=== PATIENT | male | born 1970 | race Caucasian/White ===

== ENCOUNTER 2016-03-28 10:54 | Emergency (ER) | payer MEDICAID ==
[~2016-03-28 10:54] MED LIST: /ESOM40CA OR; /GLYB5TA OR; /QUET10TA OR; ACTO45TA OR; ALLO300T OR; ASPI81TA45 OR; Byetta SC; DIOV320T OR; GEMF600T OR; GLUC1000 OR; GLUC500T OR; ZOLO100T OR; ZOLO50TA OR
[2016-03-28] MEDS ORDERED: PERCOCET 5MG/325MG TAB As Ordered ONE (11:26)
[2016-03-28] MEDS ORDERED: fentaNYL 100 MCG/2 ML INJECTION (J3010) As Ordered ONE ×2 (12:30→12:31)
[2016-03-28] MEDS ORDERED: PROPOFOL 200 MG/20 ML VIAL As Ordered ONE (12:30)
--- NOTE | 2016-03-28 13:44 | EDDOCDS ---
Nurse's Notes [facility] Name: Dane Burr Age: 45 yrs Sex: Male : 1970 Arrival Date: 03/28/2016 Time: 10:54 Bed 4 Private MD: Diagnosis: Other dislocation of right shoulder joint Presentation: 03/28 11:01 Presenting complaint: Patient states: can't move right shoulder after falling down [facility] steps last night. Adult Sepsis Screening: The patient does not have new or worsening altered mentation. Patient's respiratory rate is less than 22. Systolic blood pressure is greater than 100. Patient has a qSOFA score of 0- Negative Sepsis Screen. Suicide/Homicide risk assessment- the patient denies having any suicidal and/or homicidal ideations and does not present with any other emotional, behavioral or mental health complaints. Status: Patient is not a social services coordinator or dependent. Transition of care: patient was not received from another setting of care. 11:01 Acuity: ALYSSA Level 3 [facility] 11:01 Method Of Arrival: Walkin/Carried/Asstd [facility] Triage Assessment: 11:06 General: Appears in no apparent distress, uncomfortable, Behavior is appropriate for [facility] age, cooperative. Pain: Location: right arm Pain currently is 10 out of 10 on a pain scale. HIV screening NA for this visit Offered previously. Musculoskeletal: Range of motion limited in right shoulder. Historical: - Allergies: no known allergies; - Home Meds: 1. losartan 100 mg oral tab 1 tab once daily (Last dose: 03/27/2016) 2. pravastatin 40 mg oral tab 1 tab once daily (Last dose: 03/27/2016) 3. Tradjenta 5 mg oral tab 1 tab once daily (Last dose: 03/27/2016) 4. metformin 1,000 mg Oral tab 1 tab 2 times per day (Last dose: 03/27/2016) 5. omeprazole 40 mg Oral cpDR 1 cap once daily (Last dose: 03/27/2016) 6. Lantus 52 units nightly Sub-Q (Last dose: 03/27/2016) - PMHx: Diabetes - IDDM: controlled; GERD; Hypertension; Hypercholesterolemia; - PSHx: none; - Social history: Smoking status: Patient uses tobacco products, current some day smoker. No barriers to communication noted. - Family history: Not pertinent. - : The pt / caregiver states he / she is not on anticoagulants. Home medication list is obtained from the patient. - Exposure Risk Screening:: None identified. Screenin:07 Screening information is obtained from the patient. Fall risk: No risks identified. [facility] Assistance ADL's: requires no assistance with activities of daily living. Abuse/DV Screen: The patient / caregiver reports he/she is: not in a situation that causes fear, pain or injury. Nutritional screening: No deficits noted. Advance Directives: Currently, there is no health care proxy. There is no active DNR order. There is no living will. There is no Power of Vocational Instructor. home support is adequate. Assessment: 11:24 General: Appears uncomfortable, Behavior is cooperative. Pain: Location: upper right jf3 arm Pain currently is 10 out of 10 on a pain scale. Neurological: Level of Consciousness is awake, alert, Oriented to person, place, time. Cardiovascular: Capillary refill < 3 seconds. Respiratory: Airway is patent Respiratory effort is even, unlabored, Respiratory pattern is regular, symmetrical. Musculoskeletal: Circulation, motion, and sensation intact Capillary refill < 3 seconds Range of motion intact in right hand Bony deformity noted of right upper arm. 12:08 General: Appears in no apparent distress, Behavior is appropriate for age, cooperative. js13 Pain: Location: right shoulder. Neurological: Level of Consciousness is awake, alert. Respiratory: Airway is patent Respiratory effort is even, unlabored, Respiratory pattern is regular, symmetrical. Derm: No deficits noted. 12:57 Adult Sepsis Screening: The patient does not have new or worsening altered mentation. js13 Patient's respiratory rate is less than 22. Systolic blood pressure is greater than 100. Patient has a qSOFA score of 0- Negative Sepsis Screen. General: Appears in no apparent distress, Behavior is appropriate for age, cooperative. Pain: Pain currently is 1 out of 10 on a pain scale. Neurological: Level of Consciousness is awake, alert. Respiratory: Airway is patent Respiratory effort is even, unlabored, Respiratory pattern is regular, symmetrical. Derm: Skin is pink, warm & dry. 13:30 General: Appears in no apparent distress, Behavior is appropriate for age, cooperative. js13 Pain: Pain currently is 2 out of 10 on a pain scale. Neurological: Level of Consciousness is awake, alert. Cardiovascular: Rhythm is sinus rhythm Chest pain is denied. Respiratory: Airway is patent Respiratory effort is even, unlabored, Respiratory pattern is regular, symmetrical. Derm: Skin is pink, warm & dry. Vital Signs: 10:59 BP 162 / 84 RA Sitting (auto/reg); Pulse 105 RA; Resp 18 S; Temp 99.5(O); Pulse Ox 98% mt4 on R/A; Weight 113.4 kg (R); Height 5 ft. 8 in. (172.72 cm) (R); Pain 10/10; 12:39 BP 122 / 58; Pulse 89; Resp 20; Pulse Ox 98% on 2 lpm NC; Pain 4/10; jc4 12:40 BP 136 / 63 (auto/); js13 12:40 Pulse 92 MON; Resp 16; Pulse Ox 98% on 2 lpm NC; js13 12:47 BP 157 / 87 (auto/); js13 12:47 Pulse 84 MON; Resp 16; Pulse Ox 97% on 2 lpm NC; js13 12:50 BP 162 / 92 (auto/); js13 12:50 Pulse 82 MON; Resp 16; Pulse Ox 97% on 5 lpm NC; js13 12:55 BP 153 / 83 (auto/); js13 12:55 Pulse 74 MON; Resp 16; Pulse Ox 99% on 5 lpm NC; js13 13:00 BP 146 / 88 (auto/); js13 13:00 Pulse 72 MON; Resp 16; Pulse Ox 98% on R/A; js13 13:05 BP 142 / 85 (auto/); js13 13:05 Pulse 76 MON; Resp 16; Pulse Ox 98% on R/A; js13 13:10 BP 143 / 87 (auto/); js13 13:10 Pulse 74 MON; Resp 16; Pulse Ox 98% on R/A; js13 13:15 BP 148 / 92 (auto/); js13 13:15 Pulse 76 MON; Resp 16; Pulse Ox 98% on R/A; js13 13:20 BP 142 / 83 (auto/); js13 13:20 Pulse 80 MON; Resp 16; Pulse Ox 99% on R/A; js13 13:25 BP 134 / 75 (auto/); js13 13:25 Pulse 76 MON; Resp 16; Temp 98.5(O); Pulse Ox 95% on R/A; js13 13:33 Pain 2/10; js13 10:59 Body Mass Index 38.01 (113.40 kg, 172.72 cm) mt4 Vitals: 12:40 ETCO2 36mmHg. js13 12:47 ETCO2 35mmHg. js13 12:50 ETCO2 36mmHg. js13 12:55 ETCO2 34mmHg. js13 ED Course: 10:57 Patient visited by Carina Chen. mt4 10:57 Patient moved to Waiting mt4 11:00 Patient moved to Pre RCE mt4 11:02 Triage Initiated cjh 11:07 Patient moved to Triage 2 cj 11:09 Ray Stark PA-C is PHCP. ar2 11:09 Cornelius Holloway MD is Attending Physician. ar2 11:14 Patient visited by Ray Stark PA-C. ar2 11:17 Patient moved to Pre RCE mt4 11:19 Patient moved to I6 / jf3 11:26 Patient visited by Vik Skinner RN. 3 11:34 [facility] Payment Agreement was scanned into [employer] and attached to record. lg 11:34 Patient moved to Radiology dsf 11:39 Patient moved to I6 / 28 srm 11:46 Laura Monae,RN is Primary Nurse. srm 11:46 Patient moved to 4 srm 11:50 The patient / caregiver is instructed regarding the plan of care and ED course. Report srm given to Yamileth Monae rn. 12:09 Patient visited by Laura Monae RN. js13 12:30 Patient visited by Cornelius Holloway MD. br1 12:35 Inserted saline lock: 18 gauge in left antecubital area The patient tolerated the js13 procedure well. No procedures done that require assistance. O2 via nasal cannula \\T\\ 2L/min. 13:02 Patient visited by Laura Monae RN. js13 13:03 Patient visited by Laura Monae RN. js13 13:03 Shoulder immobilizer applied on right shoulder. Patient with positive distal sensation js13 and brisk distal capillary refill after application. 13:19 [facility] is Referral Physician. br1 13:25 Discontinued IV lock intact, bleeding controlled, pressure dressing applied, No js13 redness/swelling at site. M. Sedation: 12:39 Pre-procedure: Name of procedure: Right Shoulder Reduction Monitoring RN: Laura Monae RN Other Staff: Augustina Allan RN & Johan Goins, RT Reviewed instructions and expectations with patient, Reviewed patient's current meds list. ekg monitor on. Cardiac rhythm Sinus rhythm Pulse ox on. Oxygen via nasal cannula \\T\\ 2L/min 12:39 Pre-procedure: Has had drug/anesthesia reactions to None 12:39 Q 5 minute assessment Level of Consciousness: Alert / Oriented 12:39 Intra-procedure: Procedure began at 12:42 12:39 Pre-procedure: The provider performing the procedure is Cornelius lambert 12:39 See Trend VS 12:39 Post-procedure: Procedure ended at 12:46 the total procedure time was less than 30 minutes. 12:44 Intra-procedure: Pt drowsy, SaO2 89%, oxygen increased to 5 liters nasal canula jc4 12:45 Intra-procedure: Respiratory rate 12/minute. Pt does not verbally respond. jc4 Ventilations assisted by BVM 12:46 Intra-procedure: Pt with eyes open. Responds to verbal stimulation. States feeling jc4 "good" at this time. Follows verbal commands Administered Medications: 11:27 Drug: oxyCODONE-acetaminophen 1 tabs [oxycodone-acetaminophen 5 mg-325 mg tablet (1 dsf tabs)] Route: PO; 12:39 Drug: NS 0.9% 1000 ml [sodium chloride 0.9 % intravenous solution] Route: IV; Rate: 150 jc4 mL/hr; Site: left antecubital; 13:33 Follow up: IV Status: Infusion discontinued; IV Intake: 200ml js13 12:40 Drug: fentaNYL (PF) 100 mcg [fentanyl (PF) 50 mcg/mL injection solution (2 mL)] {Note: jc4 Administered by Dr. Holloway.} Route: IVP; Site: left antecubital; 13:33 Follow up: Pain 2/10 Adult; Response: Confirmed pt not driving.; Pain is decreased js13 12:42 Drug: Propofol (PF) 100 mg [propofol (PF) 1,000 mg/100 mL (10 mg/mL) intravenous jc4 emulsion (10 mL)] {Note: Administered by DR. Holloway.} Route: IVP; Site: left antecubital; 13:33 Follow up: Response: No Adverse Reaction js13 Intake: 13:33 IV: 200.00ml; Total: 200.00ml. js13 RT: 13:23 Sedation Time: 30Minutes. de1 Order Results: There are currently no results for this order. Outcome: 13:20 Discharge ordered by Provider. br1 13:25 Discharge Assessment: Patient awake, alert and oriented x 3. No cognitive and/or js13 functional deficits noted. Patient verbalized understanding of disposition instructions. patient administered narcotics - yes. Pt provided with safe discharge. The following High Risk Discharge criteria are identified: None. Discharged to home ambulatory, with family. Condition: stable. No special radiology studies were completed. Property :Personal belongings accompany Pt. 13:43 Discharge instructions given to patient, Instructed on discharge instructions, follow js13 up and referral plans. medication usage, Demonstrated understanding of instructions, medications, Pt was receptive of discharge instructions/ teaching. Prescriptions given X 1, Work note provided to patient. 13:43 Patient left the ED. 13 Signatures: Nadira Sanon, RN RN [facility] Taylor Linares, Reg Reg Cornelius Holloway MD MD br1 Elmer, David de1 Robertshaw, Aaron, PA-C PACarina Garay la4 Laura Allan, RN RN jc4 Naz Allred,RN Laura Todd,JESUS LEE js13 Neha Mcclure,RN JESUS willson Vik Skinner,RN RN jf3 Corrections: (The following items were deleted from the chart) 13:01 12:55 Pulse 74bpm; Monitor; Pulse Ox 99%; 13:01 12:40 Pulse 92bpm; MonitorResp 16bpm; Pulse Ox 98% RA; 13:01 12:47 Pulse 84bpm; MonitorResp 16bpm; Pulse Ox 97% RA; 13:01 12:50 Pulse 82bpm; Monitor; Pulse Ox 97%; MTDD
--- NOTE | 2016-03-28 13:44 | EDDOCDS ---
Physician Documentation [facility] Name: Dane Burr Age: 45 yrs Sex: Male : 1970 Arrival Date: 03/28/2016 Time: 10:54 Bed 4 Private MD: Disposition: 03/28/16 13:20 Discharged to Home/Self Care. Impression: Other dislocation of right shoulder joint. - Condition is Stable. - Discharge Instructions: Shoulder Dislocation, Conscious Sedation, Adult. - Prescriptions for Percocet 5- 325 mg Oral Tablet - take 1 tablet by ORAL route every 6 hours As needed MDD: 4 tabs; 10 tablet. - Medication Reconciliation, Work Release Form - 3 day, Local Pharmacy Hours form. - Follow up: [facility]; When: 4 - 5 days; Reason: Recheck today's complaints. - Problem is new. - Symptoms have improved. - Notes: You were seen in the ED for a right shoulder injury and were found to have a dislocated shoulder. You underwent sedation and reduction of the shoulder. Xray after the reduction showed normal alignment of the shoulder. Wear the shoulder immobilizer, rest, ice and take Ibuprofen as needed for pain. You may take Percocet as needed for breakthrough pain - no driving or operating machinery while on this medicine. You will need to see Orthopedics for further evaluation - please call the number below to arrange to be seen. Return to the ED for any new or worse pain or any other concerns. Historical: - Allergies: no known allergies; - Home Meds: 1. losartan 100 mg oral tab 1 tab once daily (Last dose: 03/27/2016) 2. pravastatin 40 mg oral tab 1 tab once daily (Last dose: 03/27/2016) 3. Tradjenta 5 mg oral tab 1 tab once daily (Last dose: 03/27/2016) 4. metformin 1,000 mg Oral tab 1 tab 2 times per day (Last dose: 03/27/2016) 5. omeprazole 40 mg Oral cpDR 1 cap once daily (Last dose: 03/27/2016) 6. Lantus 52 units nightly Sub-Q (Last dose: 03/27/2016) - PMHx: Diabetes - IDDM: controlled; GERD; Hypertension; Hypercholesterolemia; - PSHx: none; - Social history: Smoking status: Patient uses tobacco products, current some day smoker. No barriers to communication noted. - Family history: Not pertinent. - : The pt / caregiver states he / she is not on anticoagulants. Home medication list is obtained from the patient. - Exposure Risk Screening:: None identified. Vital Signs: 03/28 10:59 BP 162 / 84 RA Sitting (auto/reg); Pulse 105 RA; Resp 18 S; Temp 99.5(O); Pulse Ox 98% mt4 on R/A; Weight 113.4 kg / 250 lbs (R); Height 5 ft. 8 in. (172.72 cm) (R); Pain 10/10; 12:39 BP 122 / 58; Pulse 89; Resp 20; Pulse Ox 98% on 2 lpm NC; Pain 4/10; jc4 12:40 BP 136 / 63 (auto/); js13 12:40 Pulse 92 MON; Resp 16; Pulse Ox 98% on 2 lpm NC; js13 12:47 BP 157 / 87 (auto/); js13 12:47 Pulse 84 MON; Resp 16; Pulse Ox 97% on 2 lpm NC; js13 12:50 BP 162 / 92 (auto/); js13 12:50 Pulse 82 MON; Resp 16; Pulse Ox 97% on 5 lpm NC; js13 12:55 BP 153 / 83 (auto/); js13 12:55 Pulse 74 MON; Resp 16; Pulse Ox 99% on 5 lpm NC; js13 13:00 BP 146 / 88 (auto/); js13 13:00 Pulse 72 MON; Resp 16; Pulse Ox 98% on R/A; js13 13:05 BP 142 / 85 (auto/); js13 13:05 Pulse 76 MON; Resp 16; Pulse Ox 98% on R/A; js13 13:10 BP 143 / 87 (auto/); js13 13:10 Pulse 74 MON; Resp 16; Pulse Ox 98% on R/A; js13 13:15 BP 148 / 92 (auto/); js13 13:15 Pulse 76 MON; Resp 16; Pulse Ox 98% on R/A; js13 13:20 BP 142 / 83 (auto/); js13 13:20 Pulse 80 MON; Resp 16; Pulse Ox 99% on R/A; js13 13:25 BP 134 / 75 (auto/); js13 13:25 Pulse 76 MON; Resp 16; Temp 98.5(O); Pulse Ox 95% on R/A; js13 13:33 Pain 2/10; js13 10:59 Body Mass Index 38.01 (113.40 kg, 172.72 cm) mt4 Procedures: 13:20 Moderate sedation: Pre-procedure assessment: the patient has been NPO 4 hour(s) prior br1 to arrival, ASA physical classification: II - mild/mod systemic disease that does not interfere with daily routines, Airway assessment: able to hyperextend neck, able to maintain airway, can open mouth without difficulty, Mallampati classification of tongue size: III - uvula can be visualized, but faucial pillars and soft palate are not appreciated, Monitoring during procedure: nurse at bedside at all times, monitor tech, continuous pulse oximetry, End Tidal CO2 Medications employed: Fentanyl, 0.100 mg(s), Propofol _ mg? 100 mgs. Post-procedure assessment: the patient is moderately sedated, Mock sedation score: 3 - patient responds to commands only, Respiratory status: requires supplemental oxygen to maintain acceptable oxygen saturation, a reversal agent was not used, Complications: none. Total time spent by provider performing sedation 35 minutes. 13:23 Joint Reduction: of the right shoulder, using manipulation, Adduction, external br1 rotation, Immobilized with shoulder immoblizer. Patient tolerated well. Post reduction film - reveals normal alignment. MDM: 11:20 Sling ordered. ar2 11:20 oxyCODONE-acetaminophen 5 mg-325 mg 1 tabs PO once ordered. ar2 11:20 Humerus Ordered. EDMS 11:28 Financial registration complete. lg 11:34 [facility] Payment Agreement was scanned into [employer] and attached to record. lg 11:46 NOTHING BY MOUTH+DIET ordered. EDMS 12:35 IV Saline Lock ordered. br1 12:36 Call Respiratory ordered. br1 12:36 Airway Cart to bedside ordered. br1 12:36 Continuous Character Impersonator and SaO2 with q 5 minute VS during procedure ordered. br1 12:36 Initiate continuous wave form capnography monitoring ordered. br1 12:36 Oxygen at 4L/Min NC or Home dosage ordered. br1 12:36 NS 0.9% 1000 ml IV at 150 mL/hr continuous ordered. br1 12:38 Call Respiratory complete. jc4 12:50 Shoulder (1 View) Ordered. EDMS Administered Medications: 11:27 Drug: oxyCODONE-acetaminophen 1 tabs [oxycodone-acetaminophen 5 mg-325 mg tablet (1 dsf tabs)] Route: PO; 12:39 Drug: NS 0.9% 1000 ml [sodium chloride 0.9 % intravenous solution] Route: IV; Rate: 150 jc4 mL/hr; Site: left antecubital; 13:33 Follow up: IV Status: Infusion discontinued; IV Intake: 200ml js13 12:40 Drug: fentaNYL (PF) 100 mcg [fentanyl (PF) 50 mcg/mL injection solution (2 mL)] {Note: jc4 Administered by Dr. Holloway.} Route: IVP; Site: left antecubital; 13:33 Follow up: Pain 2/10 Adult; Response: Confirmed pt not driving.; Pain is decreased js13 12:42 Drug: Propofol (PF) 100 mg [propofol (PF) 1,000 mg/100 mL (10 mg/mL) intravenous jc4 emulsion (10 mL)] {Note: Administered by DR. Holloway.} Route: IVP; Site: left antecubital; 13:33 Follow up: Response: No Adverse Reaction js13 Signatures: Dispatcher [employer] EDMS Taylor Linares, Bao Gore lg Cornelius Holloway MD MD br1 Ray Stark PA-C PA-C ar2 Laura Allan RN RN jc4 Laura Monae RN RN js13 Neha Mcclure RN RN cj Naz Allred RN dsf The chart was reviewed and I authenticate all verbal orders and agree with the evaluation and treatment provided.Attachments: 11:34 [facility] Payment Agreement lg MTDD
--- NOTE | 2016-03-28 13:50 | REP ---
Right humerus: Three views. History: Trauma. Findings: Three views of the right humerus demonstrate anterior inferior glenohumeral dislocation on the right. No visible fracture. There is a bifid right anterolateral rib noted incidentally. Impression: Anterior inferior glenohumeral dislocation. No humeral fracture seen. Signed by Elgin Akins MD 03/28/2016 02:38 P
--- NOTE | 2016-03-28 13:59 | REP ---
Portable single view right shoulder: History: Post reduction. Findings: Single portable AP view of the right shoulder demonstrate normal alignment of the glenohumeral articulation. No fracture is evident on this single view. Impression: The glenohumeral joint is reduced. No fracture is visible. Signed by Elgin Akins MD 03/28/2016 02:39 P
--- NOTE | 2016-03-30 14:45 | EDDOCDS ---
Nurse's Notes [facility] Name: Dane Burr Age: 45 yrs Sex: Male : 1970 Arrival Date: 03/28/2016 Time: 10:54 Bed 4 Private MD: Diagnosis: Other dislocation of right shoulder joint Presentation: 03/28 11:01 Presenting complaint: Patient states: can't move right shoulder after falling down [facility] steps last night. Adult Sepsis Screening: The patient does not have new or worsening altered mentation. Patient's respiratory rate is less than 22. Systolic blood pressure is greater than 100. Patient has a qSOFA score of 0- Negative Sepsis Screen. Suicide/Homicide risk assessment- the patient denies having any suicidal and/or homicidal ideations and does not present with any other emotional, behavioral or mental health complaints. Status: Patient is not a mobile service rv technician or dependent. Transition of care: patient was not received from another setting of care. 11:01 Acuity: ALYSSA Level 3 [facility] 11:01 Method Of Arrival: Walkin/Carried/Asstd [facility] Triage Assessment: 11:06 General: Appears in no apparent distress, uncomfortable, Behavior is appropriate for [facility] age, cooperative. Pain: Location: right arm Pain currently is 10 out of 10 on a pain scale. HIV screening NA for this visit Offered previously. Musculoskeletal: Range of motion limited in right shoulder. Historical: - Allergies: no known allergies; - Home Meds: 1. losartan 100 mg oral tab 1 tab once daily (Last dose: 03/27/2016) 2. pravastatin 40 mg oral tab 1 tab once daily (Last dose: 03/27/2016) 3. Tradjenta 5 mg oral tab 1 tab once daily (Last dose: 03/27/2016) 4. metformin 1,000 mg Oral tab 1 tab 2 times per day (Last dose: 03/27/2016) 5. omeprazole 40 mg Oral cpDR 1 cap once daily (Last dose: 03/27/2016) 6. Lantus 52 units nightly Sub-Q (Last dose: 03/27/2016) - PMHx: Diabetes - IDDM: controlled; GERD; Hypertension; Hypercholesterolemia; - PSHx: none; - Social history: Smoking status: Patient uses tobacco products, current some day smoker. No barriers to communication noted. - Family history: Not pertinent. - : The pt / caregiver states he / she is not on anticoagulants. Home medication list is obtained from the patient. - Exposure Risk Screening:: None identified. Screenin:07 Screening information is obtained from the patient. Fall risk: No risks identified. [facility] Assistance ADL's: requires no assistance with activities of daily living. Abuse/DV Screen: The patient / caregiver reports he/she is: not in a situation that causes fear, pain or injury. Nutritional screening: No deficits noted. Advance Directives: Currently, there is no health care proxy. There is no active DNR order. There is no living will. There is no Power of Diversity Manager. home support is adequate. Assessment: 11:24 General: Appears uncomfortable, Behavior is cooperative. Pain: Location: upper right jf3 arm Pain currently is 10 out of 10 on a pain scale. Neurological: Level of Consciousness is awake, alert, Oriented to person, place, time. Cardiovascular: Capillary refill < 3 seconds. Respiratory: Airway is patent Respiratory effort is even, unlabored, Respiratory pattern is regular, symmetrical. Musculoskeletal: Circulation, motion, and sensation intact Capillary refill < 3 seconds Range of motion intact in right hand Bony deformity noted of right upper arm. 12:08 General: Appears in no apparent distress, Behavior is appropriate for age, cooperative. js13 Pain: Location: right shoulder. Neurological: Level of Consciousness is awake, alert. Respiratory: Airway is patent Respiratory effort is even, unlabored, Respiratory pattern is regular, symmetrical. Derm: No deficits noted. 12:57 Adult Sepsis Screening: The patient does not have new or worsening altered mentation. js13 Patient's respiratory rate is less than 22. Systolic blood pressure is greater than 100. Patient has a qSOFA score of 0- Negative Sepsis Screen. General: Appears in no apparent distress, Behavior is appropriate for age, cooperative. Pain: Pain currently is 1 out of 10 on a pain scale. Neurological: Level of Consciousness is awake, alert. Respiratory: Airway is patent Respiratory effort is even, unlabored, Respiratory pattern is regular, symmetrical. Derm: Skin is pink, warm & dry. 13:30 General: Appears in no apparent distress, Behavior is appropriate for age, cooperative. js13 Pain: Pain currently is 2 out of 10 on a pain scale. Neurological: Level of Consciousness is awake, alert. Cardiovascular: Rhythm is sinus rhythm Chest pain is denied. Respiratory: Airway is patent Respiratory effort is even, unlabored, Respiratory pattern is regular, symmetrical. Derm: Skin is pink, warm & dry. Vital Signs: 10:59 BP 162 / 84 RA Sitting (auto/reg); Pulse 105 RA; Resp 18 S; Temp 99.5(O); Pulse Ox 98% mt4 on R/A; Weight 113.4 kg (R); Height 5 ft. 8 in. (172.72 cm) (R); Pain 10/10; 12:39 BP 122 / 58; Pulse 89; Resp 20; Pulse Ox 98% on 2 lpm NC; Pain 4/10; jc4 12:40 BP 136 / 63 (auto/); js13 12:40 Pulse 92 MON; Resp 16; Pulse Ox 98% on 2 lpm NC; js13 12:47 BP 157 / 87 (auto/); js13 12:47 Pulse 84 MON; Resp 16; Pulse Ox 97% on 2 lpm NC; js13 12:50 BP 162 / 92 (auto/); js13 12:50 Pulse 82 MON; Resp 16; Pulse Ox 97% on 5 lpm NC; js13 12:55 BP 153 / 83 (auto/); js13 12:55 Pulse 74 MON; Resp 16; Pulse Ox 99% on 5 lpm NC; js13 13:00 BP 146 / 88 (auto/); js13 13:00 Pulse 72 MON; Resp 16; Pulse Ox 98% on R/A; js13 13:05 BP 142 / 85 (auto/); js13 13:05 Pulse 76 MON; Resp 16; Pulse Ox 98% on R/A; js13 13:10 BP 143 / 87 (auto/); js13 13:10 Pulse 74 MON; Resp 16; Pulse Ox 98% on R/A; js13 13:15 BP 148 / 92 (auto/); js13 13:15 Pulse 76 MON; Resp 16; Pulse Ox 98% on R/A; js13 13:20 BP 142 / 83 (auto/); js13 13:20 Pulse 80 MON; Resp 16; Pulse Ox 99% on R/A; js13 13:25 BP 134 / 75 (auto/); js13 13:25 Pulse 76 MON; Resp 16; Temp 98.5(O); Pulse Ox 95% on R/A; js13 13:33 Pain 2/10; js13 10:59 Body Mass Index 38.01 (113.40 kg, 172.72 cm) mt4 Vitals: 12:40 ETCO2 36mmHg. js13 12:47 ETCO2 35mmHg. js13 12:50 ETCO2 36mmHg. js13 12:55 ETCO2 34mmHg. js13 ED Course: 10:57 Patient visited by Carina Chen. mt4 10:57 Patient moved to Waiting mt4 11:00 Patient moved to Pre RCE mt4 11:02 Triage Initiated cjh 11:07 Patient moved to Triage 2 cj 11:09 Ray Stark PA-C is PHCP. ar2 11:09 Cornelius Holloway MD is Attending Physician. ar2 11:14 Patient visited by Ray Stark PA-C. ar2 11:17 Patient moved to Pre RCE mt4 11:19 Patient moved to I6 / jf3 11:26 Patient visited by Vik Skinner RN. 3 11:34 [facility] Payment Agreement was scanned into [employer] and attached to record. lg 11:34 Patient moved to Radiology dsf 11:39 Patient moved to I6 / 28 srm 11:46 Laura Monae,RN is Primary Nurse. srm 11:46 Patient moved to 4 srm 11:50 The patient / caregiver is instructed regarding the plan of care and ED course. Report srm given to Yamileth Monae rn. 12:09 Patient visited by Laura Monae RN. js13 12:30 Patient visited by Cornelius Holloway MD. br1 12:35 Inserted saline lock: 18 gauge in left antecubital area The patient tolerated the js13 procedure well. No procedures done that require assistance. O2 via nasal cannula \\T\\ 2L/min. 13:02 Patient visited by Laura Monae RN. js13 13:03 Patient visited by Laura Monae RN. js13 13:03 Shoulder immobilizer applied on right shoulder. Patient with positive distal sensation js13 and brisk distal capillary refill after application. 13:19 [facility] is Referral Physician. br1 13:25 Discontinued IV lock intact, bleeding controlled, pressure dressing applied, No js13 redness/swelling at site. 14:34 Humerus Returned. EDMS 14:34 Shoulder (1 View) Returned. EDMS 14:47 T-Sheet-- Draft Copy was scanned into [employer] and attached to record. gb 14:47 Consents was scanned into [employer] and attached to record. gb 14:47 [place] Protocol was scanned into [employer] and attached to record. gb 14:47 Radiology Report was scanned into [employer] and attached to record. estrellita M. Sedation: 12:39 Pre-procedure: Name of procedure: Right Shoulder Reduction Monitoring RN: Laura Monae RN Other Staff: Augustina Allan RN & Johan Goins, RT Reviewed instructions and expectations with patient, Reviewed patient's current meds list. monitoring analyst on. Cardiac rhythm Sinus rhythm Pulse ox on. Oxygen via nasal cannula \\T\\ 2L/min 12:39 Pre-procedure: Has had drug/anesthesia reactions to None 12:39 Q 5 minute assessment Level of Consciousness: Alert / Oriented 12:39 Intra-procedure: Procedure began at 12:42 12:39 Pre-procedure: The provider performing the procedure is Cornelius Holloway MD 4 12:39 See Trend VS 12:39 Post-procedure: Procedure ended at 12:46 the total procedure time was less than 30 minutes. 12:44 Intra-procedure: Pt drowsy, SaO2 89%, oxygen increased to 5 liters nasal canula jc4 12:45 Intra-procedure: Respiratory rate 12/minute. Pt does not verbally respond. jc4 Ventilations assisted by BVM 12:46 Intra-procedure: Pt with eyes open. Responds to verbal stimulation. States feeling jc4 "good" at this time. Follows verbal commands Administered Medications: 11:27 Drug: oxyCODONE-acetaminophen 1 tabs [oxycodone-acetaminophen 5 mg-325 mg tablet (1 dsf tabs)] Route: PO; 12:39 Drug: NS 0.9% 1000 ml [sodium chloride 0.9 % intravenous solution] Route: IV; Rate: 150 jc4 mL/hr; Site: left antecubital; 13:33 Follow up: IV Status: Infusion discontinued; IV Intake: 200ml js13 12:40 Drug: fentaNYL (PF) 100 mcg [fentanyl (PF) 50 mcg/mL injection solution (2 mL)] {Note: jc4 Administered by Dr. Holloway.} Route: IVP; Site: left antecubital; 13:33 Follow up: Pain 2/10 Adult; Response: Confirmed pt not driving.; Pain is decreased js13 12:42 Drug: Propofol (PF) 100 mg [propofol (PF) 1,000 mg/100 mL (10 mg/mL) intravenous jc4 emulsion (10 mL)] {Note: Administered by DR. Holloway.} Route: IVP; Site: left antecubital; 13:33 Follow up: Response: No Adverse Reaction js13 Attachments: 14:47 Consents gb 14:47 [place] Protocol gb Intake: 13:33 IV: 200.00ml; Total: 200.00ml. js13 RT: 13:23 Sedation Time: 30Minutes. de1 Order Results: Radiology Order: Humerus Test: Humerus REASON FOR EXAMINATION: Trauma; Right humerus: Three views.; ; History: Trauma.; ; Findings: Three views of the right humerus demonstrate anterior inferior; glenohumeral dislocation on the right. No visible fracture. There is a bifid; right anterolateral rib noted incidentally.; ; Impression:; ; Anterior inferior glenohumeral dislocation. No humeral fracture seen.; ; ; Signed by; Elgin Akins MD 03/28/2016 02:38 P; Radiology Order: Shoulder (1 View) Test: Shoulder (1 View) REASON FOR EXAMINATION: eval for reduction; Portable single view right shoulder:; ; History: Post reduction.; ; Findings: Single portable AP view of the right shoulder demonstrate normal; alignment of the glenohumeral articulation. No fracture is evident on this; single view.; ; Impression:; ; The glenohumeral joint is reduced. No fracture is visible.; ; ; Signed by; Elgin Akins MD 03/28/2016 02:39 P; Outcome: 13:20 Discharge ordered by Provider. br1 13:25 Discharge Assessment: Patient awake, alert and oriented x 3. No cognitive and/or js13 functional deficits noted. Patient verbalized understanding of disposition instructions. patient administered narcotics - yes. Pt provided with safe discharge. The following High Risk Discharge criteria are identified: None. Discharged to home ambulatory, with family. Condition: stable. No special radiology studies were completed. Property :Personal belongings accompany Pt. 13:43 Discharge instructions given to patient, Instructed on discharge instructions, follow js13 up and referral plans. medication usage, Demonstrated understanding of instructions, medications, Pt was receptive of discharge instructions/ teaching. Prescriptions given X 1, Work note provided to patient. 13:43 Patient left the ED. js13 Signatures: Dispatcher [employer] EDMS Nadira Sanon, RN RN [facility] Abdirahman Leda, Reg Reg gb MilagrosTaylor, Reg Reg lg Cornelius Holloway MD MD br1 Josh Goins Aaron, PA-C PAIlda peterson2 Carina Chen mt4 Laura Allan, RN RN jc4 Naz AllredRN RN Laura JacksonRN RN js13 Neha McclureRN RN [facility] Vik Skinner,RN RN jf3 Corrections: (The following items were deleted from the chart) 13:01 12:55 Pulse 74bpm; Monitor; Pulse Ox 99%; 13 13:01 12:40 Pulse 92bpm; MonitorResp 16bpm; Pulse Ox 98% RA; [facility] 13:01 12:47 Pulse 84bpm; MonitorResp 16bpm; Pulse Ox 97% RA; 13 13:01 12:50 Pulse 82bpm; Monitor; Pulse Ox 97%; [facility] 13 Chart Complete MTDD
--- NOTE | 2016-03-30 14:45 | EDDOCDS ---
Physician Documentation [facility] Name: Dane Burr Age: 45 yrs Sex: Male : 1970 Arrival Date: 03/28/2016 Time: 10:54 Bed 4 Private MD: Disposition: 03/28/16 13:20 Discharged to Home/Self Care. Impression: Other dislocation of right shoulder joint. - Condition is Stable. - Discharge Instructions: Shoulder Dislocation, Conscious Sedation, Adult. - Prescriptions for Percocet 5- 325 mg Oral Tablet - take 1 tablet by ORAL route every 6 hours As needed MDD: 4 tabs; 10 tablet. - Medication Reconciliation, Work Release Form - 3 day, Local Pharmacy Hours form. - Follow up: [facility]; When: 4 - 5 days; Reason: Recheck today's complaints. - Problem is new. - Symptoms have improved. - Notes: You were seen in the ED for a right shoulder injury and were found to have a dislocated shoulder. You underwent sedation and reduction of the shoulder. Xray after the reduction showed normal alignment of the shoulder. Wear the shoulder immobilizer, rest, ice and take Ibuprofen as needed for pain. You may take Percocet as needed for breakthrough pain - no driving or operating machinery while on this medicine. You will need to see Orthopedics for further evaluation - please call the number below to arrange to be seen. Return to the ED for any new or worse pain or any other concerns. Historical: - Allergies: no known allergies; - Home Meds: 1. losartan 100 mg oral tab 1 tab once daily (Last dose: 03/27/2016) 2. pravastatin 40 mg oral tab 1 tab once daily (Last dose: 03/27/2016) 3. Tradjenta 5 mg oral tab 1 tab once daily (Last dose: 03/27/2016) 4. metformin 1,000 mg Oral tab 1 tab 2 times per day (Last dose: 03/27/2016) 5. omeprazole 40 mg Oral cpDR 1 cap once daily (Last dose: 03/27/2016) 6. Lantus 52 units nightly Sub-Q (Last dose: 03/27/2016) - PMHx: Diabetes - IDDM: controlled; GERD; Hypertension; Hypercholesterolemia; - PSHx: none; - Social history: Smoking status: Patient uses tobacco products, current some day smoker. No barriers to communication noted. - Family history: Not pertinent. - : The pt / caregiver states he / she is not on anticoagulants. Home medication list is obtained from the patient. - Exposure Risk Screening:: None identified. Vital Signs: 03/28 10:59 BP 162 / 84 RA Sitting (auto/reg); Pulse 105 RA; Resp 18 S; Temp 99.5(O); Pulse Ox 98% mt4 on R/A; Weight 113.4 kg / 250 lbs (R); Height 5 ft. 8 in. (172.72 cm) (R); Pain 10/10; 12:39 BP 122 / 58; Pulse 89; Resp 20; Pulse Ox 98% on 2 lpm NC; Pain 4/10; jc4 12:40 BP 136 / 63 (auto/); js13 12:40 Pulse 92 MON; Resp 16; Pulse Ox 98% on 2 lpm NC; js13 12:47 BP 157 / 87 (auto/); js13 12:47 Pulse 84 MON; Resp 16; Pulse Ox 97% on 2 lpm NC; js13 12:50 BP 162 / 92 (auto/); js13 12:50 Pulse 82 MON; Resp 16; Pulse Ox 97% on 5 lpm NC; js13 12:55 BP 153 / 83 (auto/); js13 12:55 Pulse 74 MON; Resp 16; Pulse Ox 99% on 5 lpm NC; js13 13:00 BP 146 / 88 (auto/); js13 13:00 Pulse 72 MON; Resp 16; Pulse Ox 98% on R/A; js13 13:05 BP 142 / 85 (auto/); js13 13:05 Pulse 76 MON; Resp 16; Pulse Ox 98% on R/A; js13 13:10 BP 143 / 87 (auto/); js13 13:10 Pulse 74 MON; Resp 16; Pulse Ox 98% on R/A; js13 13:15 BP 148 / 92 (auto/); js13 13:15 Pulse 76 MON; Resp 16; Pulse Ox 98% on R/A; js13 13:20 BP 142 / 83 (auto/); js13 13:20 Pulse 80 MON; Resp 16; Pulse Ox 99% on R/A; js13 13:25 BP 134 / 75 (auto/); js13 13:25 Pulse 76 MON; Resp 16; Temp 98.5(O); Pulse Ox 95% on R/A; js13 13:33 Pain 2/10; js13 10:59 Body Mass Index 38.01 (113.40 kg, 172.72 cm) mt4 Procedures: 13:20 Moderate sedation: Pre-procedure assessment: the patient has been NPO 4 hour(s) prior br1 to arrival, ASA physical classification: II - mild/mod systemic disease that does not interfere with daily routines, Airway assessment: able to hyperextend neck, able to maintain airway, can open mouth without difficulty, Mallampati classification of tongue size: III - uvula can be visualized, but faucial pillars and soft palate are not appreciated, Monitoring during procedure: nurse at bedside at all times, cardiac monitor technician, continuous pulse oximetry, End Tidal CO2 Medications employed: Fentanyl, 0.100 mg(s), Propofol _ mg? 100 mgs. Post-procedure assessment: the patient is moderately sedated, Mock sedation score: 3 - patient responds to commands only, Respiratory status: requires supplemental oxygen to maintain acceptable oxygen saturation, a reversal agent was not used, Complications: none. Total time spent by provider performing sedation 35 minutes. 13:23 Joint Reduction: of the right shoulder, using manipulation, Adduction, external br1 rotation, Immobilized with shoulder immoblizer. Patient tolerated well. Post reduction film - reveals normal alignment. MDM: 11:20 Sling ordered. ar2 11:20 oxyCODONE-acetaminophen 5 mg-325 mg 1 tabs PO once ordered. ar2 11:20 Humerus Ordered. EDMS 11:28 Financial registration complete. lg 11:34 [facility] Payment Agreement was scanned into [employer] and attached to record. lg 11:46 NOTHING BY MOUTH+DIET ordered. EDMS 12:35 IV Saline Lock ordered. br1 12:36 Call Respiratory ordered. br1 12:36 Airway Cart to bedside ordered. br1 12:36 Continuous Plastic Duplicator and SaO2 with q 5 minute VS during procedure ordered. br1 12:36 Initiate continuous wave form capnography monitoring ordered. br1 12:36 Oxygen at 4L/Min NC or Home dosage ordered. br1 12:36 NS 0.9% 1000 ml IV at 150 mL/hr continuous ordered. br1 12:38 Call Respiratory complete. jc4 12:50 Shoulder (1 View) Ordered. EDMS 14:47 T-Sheet-- Draft Copy was scanned into [employer] and attached to record. gb 14:47 Consents was scanned into [employer] and attached to record. gb 14:47 [place] Protocol was scanned into [employer] and attached to record. gb 14:47 Radiology Report was scanned into [employer] and attached to record. gb Administered Medications: 11:27 Drug: oxyCODONE-acetaminophen 1 tabs [oxycodone-acetaminophen 5 mg-325 mg tablet (1 dsf tabs)] Route: PO; 12:39 Drug: NS 0.9% 1000 ml [sodium chloride 0.9 % intravenous solution] Route: IV; Rate: 150 jc4 mL/hr; Site: left antecubital; 13:33 Follow up: IV Status: Infusion discontinued; IV Intake: 200ml js13 12:40 Drug: fentaNYL (PF) 100 mcg [fentanyl (PF) 50 mcg/mL injection solution (2 mL)] {Note: jc4 Administered by Dr. Holloway.} Route: IVP; Site: left antecubital; 13:33 Follow up: Pain 2/10 Adult; Response: Confirmed pt not driving.; Pain is decreased js13 12:42 Drug: Propofol (PF) 100 mg [propofol (PF) 1,000 mg/100 mL (10 mg/mL) intravenous jc4 emulsion (10 mL)] {Note: Administered by DR. Holloway.} Route: IVP; Site: left antecubital; 13:33 Follow up: Response: No Adverse Reaction js13 Signatures: Dispatcher [employer] EDGA Leda Gary, Reg Reg gb Taylor Linares, Reg Reg lg Cornelius Holloway MD MD br1 Ray Stark PA-C PA-C ar2 Laura Allan RN RN jc4 Laura Monae RN RN js13 Neha Mcclure RN RN cjh Fuller, Desiree RN dsf The chart was reviewed and I authenticate all verbal orders and agree with the evaluation and treatment provided.Attachments: 11:34 [facility] Payment Agreement lg 14:47 T-Sheet-- Draft Copy gb Chart Complete MTDD
--- NOTE | 2016-03-30 14:45 | EDDOCDS ---
Physician Documentation [facility] Name: Dane Burr Age: 45 yrs Sex: Male : 1970 Arrival Date: 03/28/2016 Time: 10:54 Bed 4 Private MD: Disposition: 03/28/16 13:20 Discharged to Home/Self Care. Impression: Other dislocation of right shoulder joint. - Condition is Stable. - Discharge Instructions: Shoulder Dislocation, Conscious Sedation, Adult. - Prescriptions for Percocet 5- 325 mg Oral Tablet - take 1 tablet by ORAL route every 6 hours As needed MDD: 4 tabs; 10 tablet. - Medication Reconciliation, Work Release Form - 3 day, Local Pharmacy Hours form. - Follow up: [facility]; When: 4 - 5 days; Reason: Recheck today's complaints. - Problem is new. - Symptoms have improved. - Notes: You were seen in the ED for a right shoulder injury and were found to have a dislocated shoulder. You underwent sedation and reduction of the shoulder. Xray after the reduction showed normal alignment of the shoulder. Wear the shoulder immobilizer, rest, ice and take Ibuprofen as needed for pain. You may take Percocet as needed for breakthrough pain - no driving or operating machinery while on this medicine. You will need to see Orthopedics for further evaluation - please call the number below to arrange to be seen. Return to the ED for any new or worse pain or any other concerns. Historical: - Allergies: no known allergies; - Home Meds: 1. losartan 100 mg oral tab 1 tab once daily (Last dose: 03/27/2016) 2. pravastatin 40 mg oral tab 1 tab once daily (Last dose: 03/27/2016) 3. Tradjenta 5 mg oral tab 1 tab once daily (Last dose: 03/27/2016) 4. metformin 1,000 mg Oral tab 1 tab 2 times per day (Last dose: 03/27/2016) 5. omeprazole 40 mg Oral cpDR 1 cap once daily (Last dose: 03/27/2016) 6. Lantus 52 units nightly Sub-Q (Last dose: 03/27/2016) - PMHx: Diabetes - IDDM: controlled; GERD; Hypertension; Hypercholesterolemia; - PSHx: none; - Social history: Smoking status: Patient uses tobacco products, current some day smoker. No barriers to communication noted. - Family history: Not pertinent. - : The pt / caregiver states he / she is not on anticoagulants. Home medication list is obtained from the patient. - Exposure Risk Screening:: None identified. Vital Signs: 03/28 10:59 BP 162 / 84 RA Sitting (auto/reg); Pulse 105 RA; Resp 18 S; Temp 99.5(O); Pulse Ox 98% mt4 on R/A; Weight 113.4 kg / 250 lbs (R); Height 5 ft. 8 in. (172.72 cm) (R); Pain 10/10; 12:39 BP 122 / 58; Pulse 89; Resp 20; Pulse Ox 98% on 2 lpm NC; Pain 4/10; jc4 12:40 BP 136 / 63 (auto/); js13 12:40 Pulse 92 MON; Resp 16; Pulse Ox 98% on 2 lpm NC; js13 12:47 BP 157 / 87 (auto/); js13 12:47 Pulse 84 MON; Resp 16; Pulse Ox 97% on 2 lpm NC; js13 12:50 BP 162 / 92 (auto/); js13 12:50 Pulse 82 MON; Resp 16; Pulse Ox 97% on 5 lpm NC; js13 12:55 BP 153 / 83 (auto/); js13 12:55 Pulse 74 MON; Resp 16; Pulse Ox 99% on 5 lpm NC; js13 13:00 BP 146 / 88 (auto/); js13 13:00 Pulse 72 MON; Resp 16; Pulse Ox 98% on R/A; js13 13:05 BP 142 / 85 (auto/); js13 13:05 Pulse 76 MON; Resp 16; Pulse Ox 98% on R/A; js13 13:10 BP 143 / 87 (auto/); js13 13:10 Pulse 74 MON; Resp 16; Pulse Ox 98% on R/A; js13 13:15 BP 148 / 92 (auto/); js13 13:15 Pulse 76 MON; Resp 16; Pulse Ox 98% on R/A; js13 13:20 BP 142 / 83 (auto/); js13 13:20 Pulse 80 MON; Resp 16; Pulse Ox 99% on R/A; js13 13:25 BP 134 / 75 (auto/); js13 13:25 Pulse 76 MON; Resp 16; Temp 98.5(O); Pulse Ox 95% on R/A; js13 13:33 Pain 2/10; js13 10:59 Body Mass Index 38.01 (113.40 kg, 172.72 cm) mt4 Procedures: 13:20 Moderate sedation: Pre-procedure assessment: the patient has been NPO 4 hour(s) prior br1 to arrival, ASA physical classification: II - mild/mod systemic disease that does not interfere with daily routines, Airway assessment: able to hyperextend neck, able to maintain airway, can open mouth without difficulty, Mallampati classification of tongue size: III - uvula can be visualized, but faucial pillars and soft palate are not appreciated, Monitoring during procedure: nurse at bedside at all times, color television console monitor, continuous pulse oximetry, End Tidal CO2 Medications employed: Fentanyl, 0.100 mg(s), Propofol _ mg? 100 mgs. Post-procedure assessment: the patient is moderately sedated, Mock sedation score: 3 - patient responds to commands only, Respiratory status: requires supplemental oxygen to maintain acceptable oxygen saturation, a reversal agent was not used, Complications: none. Total time spent by provider performing sedation 35 minutes. 13:23 Joint Reduction: of the right shoulder, using manipulation, Adduction, external br1 rotation, Immobilized with shoulder immoblizer. Patient tolerated well. Post reduction film - reveals normal alignment. MDM: 11:20 Sling ordered. ar2 11:20 oxyCODONE-acetaminophen 5 mg-325 mg 1 tabs PO once ordered. ar2 11:20 Humerus Ordered. EDMS 11:28 Financial registration complete. lg 11:34 [facility] was scanned into [employer] and attached to record. lg 11:46 NOTHING BY MOUTH+DIET ordered. EDMS 12:35 IV Saline Lock ordered. br1 12:36 Call Respiratory ordered. br1 12:36 Airway Cart to bedside ordered. br1 12:36 Continuous Home Service Director and SaO2 with q 5 minute VS during procedure ordered. br1 12:36 Initiate continuous wave form capnography monitoring ordered. br1 12:36 Oxygen at 4L/Min NC or Home dosage ordered. br1 12:36 NS 0.9% 1000 ml IV at 150 mL/hr continuous ordered. br1 12:38 Call Respiratory complete. jc4 12:50 Shoulder (1 View) Ordered. EDMS 14:47 T-Sheet-- Draft Copy was scanned into [employer] and attached to record. gb 14:47 Consents was scanned into [employer] and attached to record. gb 14:47 [place] Protocol was scanned into [employer] and attached to record. gb 14:47 Radiology Report was scanned into [employer] and attached to record. gb Administered Medications: 11:27 Drug: oxyCODONE-acetaminophen 1 tabs [oxycodone-acetaminophen 5 mg-325 mg tablet (1 dsf tabs)] Route: PO; 12:39 Drug: NS 0.9% 1000 ml [sodium chloride 0.9 % intravenous solution] Route: IV; Rate: 150 jc4 mL/hr; Site: left antecubital; 13:33 Follow up: IV Status: Infusion discontinued; IV Intake: 200ml js13 12:40 Drug: fentaNYL (PF) 100 mcg [fentanyl (PF) 50 mcg/mL injection solution (2 mL)] {Note: jc4 Administered by Dr. Holloway.} Route: IVP; Site: left antecubital; 13:33 Follow up: Pain 2/10 Adult; Response: Confirmed pt not driving.; Pain is decreased js13 12:42 Drug: Propofol (PF) 100 mg [propofol (PF) 1,000 mg/100 mL (10 mg/mL) intravenous jc4 emulsion (10 mL)] {Note: Administered by DR. Holloway.} Route: IVP; Site: left antecubital; 13:33 Follow up: Response: No Adverse Reaction js13 Signatures: Dispatcher [employer] EDAL Leda Gary, Reg Reg gb Taylor Linares, Reg Reg lg Cornelius Holloway MD MD br1 Ray Stark PA-C PA-C ar2 Laura Allan RN RN jc4 Laura Monae RN RN js13 Neha Mcclure RN RN cjh Fuller, Desiree RN dsf The chart was reviewed and I authenticate all verbal orders and agree with the evaluation and treatment provided.Attachments: 11:34 [facility] [place] Agreement lg 14:47 T-Sheet-- Draft Copy gb Chart Complete MTDD
== END 2016-03-28 13:43 | disposition home or self-care (01) ==
LOC: M ED 10:54
DX: S43.001A Unspecified subluxation of right shoulder joint, initial encounter (principal); W10.9XXA Fall (on) (from) unspecified stairs and steps, initial encounter; Y92.018 Other place in single-family (private) house as the place of occurrence of the external cause; Y93.89 Activity, other specified; Y99.8 Other external cause status; E11.9 Type 2 diabetes mellitus without complications; I10 Essential (primary) hypertension; E78.00 Pure hypercholesterolemia, unspecified; K21.9 Gastro-esophageal reflux disease without esophagitis; Z79.899 Other long term (current) drug therapy; Z79.84 Long term (current) use of oral hypoglycemic drugs; F17.210 Nicotine dependence, cigarettes, uncomplicated
CPT/HCPCS: 23650; 73020; 73060; 93041; 96361; 96374; 96375; 99285; J3010

== ENCOUNTER → 2016-07-06 | Outpatient (REF) | payer OTHER, MEDICAID ==
[2016-07-06 20:01] LABS: ALBUMIN 3.7 GM/DL (3.2-5.2); ALBUMIN/GLOBULIN RATIO 1.06 (1.00-1.93); ALKALINE PHOSPHATASE 117 U/L (45-117); ALT/SGPT 26 U/L (12-78); ANION GAP 10 MEQ/L (8-16); AST/SGOT 14 U/L (15-37); BILIRUBIN,TOTAL 0.4 MG/DL (0.2-1.0); BLOOD UREA NITROGEN 15 MG/DL (7-18); CALCIUM LEVEL 8.7 MG/DL (8.5-10.1); CARBON DIOXIDE LEVEL 25 MEQ/L (21-32); CHLORIDE LEVEL 103 MEQ/L (98-107); CHOLESTEROL LEVEL 153 MG/DL (<200); CREATININE FOR GFR 1.01 MG/DL (0.70-1.30); GLOMERULAR FILTRATION RATE > 60.0 (>60); GLUCOSE, FASTING 279 MG/DL (70-105); MAGNESIUM LEVEL 1.4 MG/DL (1.8-2.4); POTASSIUM SERUM 4.2 MEQ/L (3.5-5.1); SODIUM LEVEL 138 MEQ/L (136-145); TOTAL PROTEIN 7.2 GM/DL (6.4-8.2); TRIGLYCERIDES LEVEL 352 MG/DL (<150)
== END ==
LOC: M LAB REF 16:40
PROVIDERS: ATTEND Nurse Practitioner Family
DX: E11.9 Type 2 diabetes mellitus without complications (principal); K21.9 Gastro-esophageal reflux disease without esophagitis; E78.5 Hyperlipidemia, unspecified; I10 Essential (primary) hypertension

== ENCOUNTER → 2016-07-09 | Outpatient (CLI) | payer OTHER, MEDICAID ==
[2016-07-09 19:34] LABS: MEAN CORPUSCULAR HEMOGLOBIN 30.2 pg (27.0-33.0); MEAN CORPUSCULAR HGB CONC 33.4 g/dl (32.0-36.5); MEAN CORPUSCULAR VOLUME 90.3 fl (80.0-96.0); RED CELL DISTRIBUTION WIDTH 12.5 % (11.5-14.5); WHITE BLOOD COUNT 10.8 K/mm3 (4.0-10.0)
== END ==
LOC: M SMT 11:38
PROVIDERS: ATTEND Nurse Practitioner Family
DX: I10 Essential (primary) hypertension (principal); E11.9 Type 2 diabetes mellitus without complications

== ENCOUNTER → 2016-07-28 | Outpatient (REF) | payer OTHER, MEDICAID | LOC: M LAB REF 17:16 | PROVIDERS: ATTEND Nurse Practitioner Family | DX: E83.42 Hypomagnesemia (principal) ==

== ENCOUNTER → 2016-08-20 | Outpatient (CLI) | payer OTHER ==
[~2016-08-20] MED LIST changes: +ALOG25TA PO; +ATOR40TA PO; +ECOT81TA5 PO; +INSUHUMDS SC; +INSULADS INJ; +INSULANT SC; +LOSA100T36 PO; +MAGN1TAB25 PO; +METF1000 PO; +OMEP40CA2 PO; +PRAV40TA2 PO; +TOUJ1.2I SC; +TRAD5TAB PO; +VITA500055 PO
--- NOTE | 2016-08-20 17:12 | ECGEPIP ---
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
--- NOTE | 2016-08-21 01:30 | REP ---
Clinical: Preoperative assessment . Comparison: 05/02/2007 . Technique: PA and lateral. Findings: The mediastinum and cardiac silhouette are normal. The lung melo are clear and without acute consolidation, effusion, or pneumothorax. The skeletal structures are intact and normal. Impression: 1. No acute cardiopulmonary process. Signed by Akin Ibanez MD 08/21/2016 01:22 A
== END ==
LOC: M EKG 12:38
PROVIDERS: ATTEND Nurse Practitioner Family
DX: Z01.818 Encounter for other preprocedural examination (principal); I10 Essential (primary) hypertension

== ENCOUNTER → 2016-08-20 | Outpatient (REF) | payer OTHER ==
[2016-08-20 18:56] LABS: ANION GAP 9 MEQ/L (8-16); BLOOD UREA NITROGEN 19 MG/DL (7-18); CALCIUM LEVEL 9.9 MG/DL (8.5-10.1); CARBON DIOXIDE LEVEL 25 MEQ/L (21-32); CHLORIDE LEVEL 101 MEQ/L (98-107); CREATININE FOR GFR 0.97 MG/DL (0.70-1.30); GLOMERULAR FILTRATION RATE > 60.0 (>60); GLUCOSE, FASTING 248 MG/DL (70-105); MAGNESIUM LEVEL 1.6 MG/DL (1.8-2.4); SODIUM LEVEL 135 MEQ/L (136-145)
== END ==
LOC: M LAB REF 16:50
PROVIDERS: ATTEND Nurse Practitioner Family
DX: E55.9 Vitamin D deficiency, unspecified (principal)

== ENCOUNTER 2016-08-28 10:36 | Day surgery (SDC) | payer OTHER ==
[~2016-08-28] VITALS: Ht 172.7 cm; Wt 126.6 kg
[~2016-08-28 10:36] MED LIST changes: +LIDOCAINE 2% INJ 100 MG/5 ML SDV (FOR ANES.) As Ordered ONE; +MIDAZOLAM INJ 2 MG/2 ML VIAL (J2250) As Ordered ONE; +ONDANSETRON 4MG/2ML VIAL (J2405) As Ordered ONE; +PROPOFOL 200 MG/20 ML VIAL As Ordered ONE; +ROCURONIUM BROMIDE 50 MG/5 ML VIAL As Ordered ONE; +dexameTHASONE 4 MG/ML 1ML VIAL (J1100) As Ordered ONE; +fentaNYL 100 MCG/2 ML INJECTION (J3010) As Ordered ONE
[2016-08-28] MEDS ORDERED: dexameTHASONE 10 MG/1 ML VIAL PRES.FREE (J1100) ONE (10:37)
[2016-08-28] MEDS ORDERED: ROPIvacaine 0.5% 30 ML INJECTION (J2795) ONE (10:37)
[2016-08-28] MEDS ORDERED: LIDOCAINE 1% MDV 20ML VIAL ONE (10:37)
[2016-08-28] MEDS ORDERED: MEPIVACAINE HCL 1.5% 30 ML VIAL (J0670) ONE (10:37)
[2016-08-28] MEDS ORDERED: LR 1,000 ML IV ONE (10:45)
[2016-08-28] MEDS ORDERED: fentaNYL 100 MCG/2 ML INJECTION (J3010) As Ordered ONE (11:52)
[2016-08-28] MEDS ORDERED: MIDAZOLAM INJ 2 MG/2 ML VIAL (J2250) As Ordered ONE (11:52)
[2016-08-28] MEDS ORDERED: EPINEPHrine 1MG/ML INJ 30ML MD-VIAL As Ordered ONE (12:00)
[2016-08-28] MEDS ORDERED: HumaLOG INSULIN (NovoLOG) PER UNIT SC ONE ×2 (12:00→17:30)
[2016-08-28] MEDS: MIDAZOLAM INJ 2 MG/2 ML VIAL (J2250) IV PRN ×2 (12:25→12:27)
[2016-08-28] MEDS: fentaNYL 100 MCG/2 ML INJECTION (J3010) IV PRN ×2 (12:25→12:28)
[2016-08-28] MEDS ORDERED: HYDROmorphone HCL 2 MG/ML 1ML VIAL (J1170) As Ordered ONE (13:30)
[2016-08-28] MEDS ORDERED: HYDROmorphone HCL 1 MG/ML SYRINGE (J1170) As Ordered ONE (16:57)
[2016-08-28] MEDS ORDERED: PERCOCET 5MG/325MG TAB As Ordered ONE (16:57)
[2016-08-28] MEDS ORDERED: PERCOCET 5MG/325MG TAB PO PRN (17:15)
[2016-08-28] MEDS ORDERED: NORCO, ANEXSIA 5/325MG TABLET (HYDROcodone/ACETAMINOPHEN) PO PRN (17:15)
[2016-08-28] MEDS ORDERED: ONDANSETRON 4MG/2ML VIAL (J2405) IV PRN (17:15)
[2016-08-28] MEDS ORDERED: MORPHINE 4 MG/ML 1ML SYRINGE IV PRN (17:15)
[2016-08-28] MEDS ORDERED: LR 1,000 ML IV SCH ×2 (17:15)
[2016-08-28] MEDS ORDERED: HYDROmorphone HCL 1 MG/ML SYRINGE (J1170) IV PRN (17:15)
[2016-08-28] MEDS ORDERED: fentaNYL 100 MCG/2 ML INJECTION (J3010) IV PRN (17:15)
[2016-08-28 18:45] VITALS: BP 139/75
[2016-08-28 19:15] VITALS: BP 177/83
[2016-08-28 20:15] VITALS: BP 148/76
[2016-08-28] MEDS: NORCO, ANEXSIA 5/325MG TABLET (HYDROcodone/ACETAMINOPHEN) PO PRN (20:42)
[2016-08-28] MEDS ORDERED: ENTER DRUG NAME HERE (PATIENT'S OWN MED) SC SCH (21:00)
[2016-08-28 21:15] VITALS: BP 150/70
[2016-08-28 22:00] VITALS: BP 176/84
[2016-08-28] MEDS: metFORMIN (GLUCOPHAGE) 1000 MG TABLET PO SCH (22:22)
[2016-08-29 02:00] VITALS: BP 136/68
[2016-08-29 06:00] VITALS: BP 140/66
[2016-08-29] MEDS: NORCO, ANEXSIA 5/325MG TABLET (HYDROcodone/ACETAMINOPHEN) PO PRN ×2 (06:29→10:41)
[2016-08-29] MEDS ORDERED: metFORMIN (GLUCOPHAGE) 1000 MG TABLET PO SCH (08:00)
[2016-08-29] MEDS ORDERED: ENTER DRUG NAME HERE (PATIENT'S OWN MED) SC SCH (09:00)
--- NOTE | 2016-08-29 10:18 | RO ---
DATE OF PROCEDURE: 08/28/2016 PREPROCEDURE DIAGNOSES: 1. Right shoulder supraspinatus rotator cuff tear. 2. Right shoulder subscapularis cuff tear 3. Right shoulder biceps medial dislocation. POSTPROCEDURE DIAGNOSES: 1. Right shoulder supraspinatus rotator cuff tear. 2. Right shoulder subscapularis cuff tear 3. Right shoulder biceps medial dislocation. PROCEDURE: 1. Right shoulder arthroscopic subscapularis repair using two SwiveLocks. 2. Right shoulder arthroscopic biceps tenotomy. 3. Right shoulder arthroscopic supraspinatus rotator cuff tendon tear using a double row SpeedBridge hybrid technique. SURGEON: Johan Marlow MD STATEMENT REQUEST CLERK: Dane Merchant PA-C ANESTHESIA: Right interscalene nerve block with general endotracheal anesthetic. COMPLICATIONS: None. ESTIMATED BLOOD LOSS: 50 mL. FINDINGS: He had a complete disruption of both the subscapularis and the supraspinatus tendon with medial dislocation of the biceps. DESCRIPTION OF PROCEDURE: Antibiotics were given intravenously preoperatively and a successful right interscalene nerve block anesthetic was established. Then, he was taken to the operating room, where a general endotracheal anesthetic was established and then placed in a semi beach chair position with a spider shoulder almaguer was also utilized. The right shoulder area was then carefully prepped and draped in the usual sterile fashion. Then, after an appropriate time-out, a routine diagnostic arthroscopy was performed with the right shoulder through a posterior portal. Upon entering the joint, you could see that the biceps was easily subluxing into a dislocated position by just palpating it through the anterior portal using my Veress needle. This was consistent with his subscapularis tear, and you can also see that the subscapularis was pulled away from almost its entire footprint and retracted medially. The comma tissue was readily identifiable attached to the overlying supraspinatus tendon tear above, and there was a complete disruption of the supraspinatus tendon, as well. There was some glenohumeral arthritis and some spurring around the humeral head, but it was mild in degree. No other pathology identified. Thus, I released the biceps tendon from its insertion in the glenoid superior tubercle and then placed the scope in the subacromial space and performed a bursectomy. I established a lateral working cannula and then an anterior working cannula; and then, I was able to dissect around the subscapularis tendon, both on its anterior surface down between the coracoid and the strap muscles in the anterior surface of the subscapularis tendon, as well as medially around the glenoid neck, such that I could get adequate mobilization eventually of the subscapularis tendon. I also worked the supraspinatus tendon, both on the articular and bursal side, to help mobilize that tendon, as well, such that when I pulled on it with the rotator cuff grasped, it appeared mobile enough that we could get good repair. The footprint of the supraspinatus and the subscapularis tendon was then debrided down to good bony bed using the ring curette and the bur and the shaver. Once I was satisfied that we had adequate visualization of the cuff, I could understand the anatomy. I began first by repairing the subscapularis tendon. I used the SwiveLock technique using FiberTapes as a SpeedFix technique. I used two anchors because of the relatively large size of the subscapularis tear. Through the anterior working port that was established, I was able to pass first a FiberTape in a horizontal mattress fashion on the inferior portion of the subscapularis and then dock the sutures in an accessory anterior portal. I then passed another FiberTape in a horizontal mattress fashion, as well, more superior on the subscapularis tendon and then docked that, as well. Then, through the anterior cannula that was established, I grabbed first the inferior pair of sutures, loaded them onto a SwiveLock and then used the punch to make a hole in the inferior portion of the subscapularis footprint and then advanced the SwiveLock, providing nice coaptation of the subscapularis to its bony bed along the lesser tuberosity. I then grabbed the remaining pair of FiberTapes on the superior aspect of the subscapularis, loaded them on another SwiveLock outside the joint, used the punch, and then advanced that into the lesser tuberosity. It provided a nice repair of the subscapularis tendon, and this brought the supraspinatus tendon also into more anatomic position for a repair. This worked out very nicely. I then passed two medial row SwiveLock anchors for the double row SpeedBridge rotator cuff repair using spinal needle to localize. I first passed the anterior medial anchor, and then I passed the FiberTape up through the rotator cuff, and then I passed both limbs of the retention suture to use as a rip-stop horizontal mattress suture. Once all three of those sutures were passed, I docked them anteriorly, and then I placed the posterior medial row SwiveLock anchor; and then, in a similar fashion, I first passed the FiberTapes, docked it out posteriorly, then grabbed the retention suture limbs, and passed them up as a horizontal mattress to be used as a rip-stop. Once they all had been passed, I then tied first the anterior pair of sutures using a ZUCHEM slider slipknot, backed up by several alternating half hitches, and kept the limbs long. I then tied the posterior retention suture pair in a similar technique using a ZUCHEM slider and backed up by several alternating row of half hitches. I then grabbed one limb from each of the anchors, and then I first made the anterior lateral row. I passed them through a SwiveLock outside the joint, used the punch to place in the appropriate position anteriorly over the greater tuberosity. I then docked the SwiveLock, making sure I had good tension on all limbs of the anchor, and this provided a nice watertight closure anteriorly. I grabbed the remaining four limbs for the posterolateral row over the greater tuberosity, used the punch, and then passed all the sutures through the SwiveLock, and then advanced the SwiveLock, making sure I had good tension on all four limbs, providing a nice repair of the rotator cuff. One FiberTape limb lost some of its tension as I tightened, but the overall cuff construct was watertight and well coapted. Photographs were taken to document. I brought the shoulder through a range of motion, and the rotator cuff repair was nice and tight. At this point, I concluded the arthroscopic procedure by copiously irrigating out the joint, closed the arthroscopy portals with interrupted nylon sutures, covered with Adaptic dry sterile bulky dressing. While he was still asleep and while he was still in a spider shoulder almaguer, his brace was applied; and then, he was awakened from general endotracheal anesthesia after having tolerated the procedure well, transferred to the recovery room in stable condition. There were no intraoperative complications.
[2016-08-29] MEDS: metFORMIN (GLUCOPHAGE) 1000 MG TABLET PO SCH (10:40)
== END 2016-08-29 13:35 | disposition home or self-care (01) ==
LOC: M SDC 10:36 → M MS5PR 18:09 → M SDC 08-29 13:35
PROVIDERS: ATTEND Orthopaedic Surgery
DX: S43.81XA Sprain of other specified parts of right shoulder girdle, initial encounter (principal); M75.21 Bicipital tendinitis, right shoulder; I10 Essential (primary) hypertension; E11.9 Type 2 diabetes mellitus without complications; Z79.4 Long term (current) use of insulin; K21.9 Gastro-esophageal reflux disease without esophagitis; E78.5 Hyperlipidemia, unspecified; K44.9 Diaphragmatic hernia without obstruction or gangrene; Y92.9 Unspecified place or not applicable; Y93.9 Activity, unspecified